=== PATIENT | female | born 1950 | race Two or more races ===

== ENCOUNTER 2016-12-06 23:02 | Inpatient (IN) | payer MEDICARE ==
[~2016-12-06] VITALS: Ht 162.6 cm; Wt 84.8 kg
[2016-12-07] MEDS ORDERED: Morphine Sulfate 4mg/ml Inj IVP ONE (01:00)
[2016-12-07 01:09] LABS: BASOPHILS % (AUTO) 0.8 % (0.0-2.0); EOSINOPHILS % (AUTO) 1.8 % (0.0-3.0); LYMPHOCYTES % (AUTO) 30.9 % (20.0-45.0); MEAN CORPUSCULAR HEMOGLOBIN 31.1 PG (27.0-31.0); MEAN CORPUSCULAR HGB CONC 33.3 G/DL (32.0-36.0); MEAN CORPUSCULAR VOLUME 93 FL (80-99); MONOCYTES % (AUTO) 5.6 % (1.0-10.0); NEUTROPHILS % (AUTO) 60.9 % (45.0-75.0); PLATELET COUNT 137 K/UL (150-450); RED CELL DISTRIBUTION WIDTH 11.9 % (11.6-14.8); WHITE BLOOD COUNT 5.5 K/UL (4.8-10.8)
[2016-12-07 01:27] LABS: ALANINE AMINOTRANSFERASE 27 U/L (3-33); ALBUMIN/GLOBULIN RATIO 1.6 (1.0-2.7); ANION GAP 12 (5-15); ASPARTATE AMINO TRANSFERASE 21 U/L (5-40); CARBON DIOXIDE 29 mEQ/L (20-30); CHLORIDE 100 mEQ/L (98-107); CREATININE 0.7 mg/dL (0.5-0.9); GLOMERULAR FILTRATION RATE > 60 mL/min (>60); HEMOLYSIS 4; LIPASE 62 U/L (< 60); POTASSIUM 4.4 mEQ/L (3.4-4.9); SODIUM 141 mEQ/L (135-145); TOTAL PROTEIN 7.5 g/dL (6.6-8.7)
[2016-12-07 01:54] LABS: TROPONIN I < 0.30 ng/mL (<=0.30)
[2016-12-07 02:04] LABS: CKMB 2.5 ng/mL (< 3.8)
[2016-12-07] MEDS ORDERED: Diazepam 10mg/2ml Inj IV ONE (02:45)
[2016-12-07 03:21] VITALS: BP 135/78
[2016-12-07 03:58] LABS: APPEARANCE,URINE CLEAR; KETONES,URINE NEGATIVE (NEGATIVE); LEUKOCYTE ESTERASE ,URINE 1+ (NEGATIVE); NITRITE,URINE NEGATIVE (NEGATIVE); PH,URINE 7 (4.5-8.0); PROTEIN,URINE NEGATIVE (NEGATIVE); UROBILINOGEN,URINE NORMAL MG/DL (0.0-1.0)
[2016-12-07 04:08] LABS: RBC,URINE 0-2 /HPF (0 - 2); SQUAMOUS EPITHELIAL CELL,UR FEW /LPF (NONE/OCC); WBC,URINE 0-2 /HPF (0 - 2)
[2016-12-07] MEDS ORDERED: MECLIZINE HCL25 MG ORAL (04:54)
[2016-12-07] MEDS ORDERED: ZOFRAN ODT4 MG ORAL (04:54)
--- NOTE | 2016-12-07 06:15 | Emergency Room Report ---
History of Present Illness General Chief Complaint: Headache Source: Patient Present Illness HPI 66-year-old female presents to ED complaining of headache with nausea and vomiting. Patient brought in by EMS. Patient states symptoms started just prior to arrival. Patient describes headache, 6/10, throbbing, across the forehead. Denies any blurry vision. Notes nausea and vomiting. States she feels dizziness with room spinning sensation. Worse with sudden movements. Denies neck stiffness. Denies any fevers or chills. Denies chest pain shortness of breath. No other aggravating relieving factors. Denies any other associated symptoms Allergies: Coded Allergies: CODEINE (Unverified Allergy, Unknown, 12/06/16) SULFA (SULFONAMIDE ANTIBIOTICS) (Unverified Allergy, Unknown, 12/06/16) Uncoded Allergies: SULFA (Allergy, Unknown, 12/06/16) Patient History Past Medical History: HTN Past Surgical History: none Pertinent Family History: none Social History: Denies: alcohol use, drug use, smoking Last Menstrual Period: NONE Now: No Immunizations: UTD Reviewed Nursing Documentation: PMH: Agreed, PSxH: Agreed Nursing Documentation-PMH Hx Hypertension: Yes Review of Systems All Other Systems: negative except mentioned in HPI Physical Exam Vital Signs Date Time Temp Pulse Resp B/P Pulse Ox O2 Delivery O2 Flow Rate FiO2 12/06/16 22:57 97.9 67 18 147/85 97 Room Air Sp02 EP Interpretation: reviewed, normal General Appearance: alert, GCS 15, non-toxic, mild distress Head: normocephalic, atraumatic Eyes: bilateral eye PERRL, bilateral eye normal inspection ENT: hearing grossly normal, normal pharynx, no angioedema, normal voice Neck: full range of motion, supple/symm/no masses Respiratory: chest non-tender, lungs clear, normal breath sounds, speaking full sentences Cardiovascular #1: regular rate, rhythm, no edema Cardiovascular #2: 2+ carotid (R), 2+ carotid (L), 2+ radial (R), 2+ radial (L) , 2+ dorsalis pedis (R), 2+ dorsalis pedis (L) Gastrointestinal: normal bowel sounds, non tender, soft, non-distended, no guarding, no rebound Rectal: deferred Genitourinary: normal inspection, no CVA tenderness Musculoskeletal: back normal, gait/station normal, normal range of motion, non- tender Neurologic: alert, oriented x3, responsive, motor strength/tone normal, sensory intact, speech normal Psychiatric: judgement/insight normal, memory normal, mood/affect normal, no suicidal/homicidal ideation Reflexes: 3+ bicep (R), 3+ bicep (L), 3+ tricep (R), 3+ tricep (L), 3+ knee (R) , 3+ knee (L) Skin: normal color, no rash, warm/dry, well hydrated Lymphatic: no adenopathy Medical Decision Making Diagnostic Impression: Primary Impression: Vertigo Additional Impressions: Headache Qualified Codes: R51 - Headache Unsteady gait ER Course Hospital Course 66-year-old female presents ED complaining of headache with dizziness and vomiting Differential diagnoses include: GA/unstable angina, arrythmia, dehydration, CVA/ TIA Clinical course Patient placed on stretcher. on steel rigger. After initial history and physical I ordered labs, EKG, IVFs, CT Brain labs reviewed- no leukocytosis, hemoglobin/hematocrit ok, electrolytes okay, troponins negative EKG- NSR, no acute changes interpreted by me CT brain-unremarkable Patient given pain medication, Zofran, valium for the dizziness. Given IV fluids. However patient remains dizzy and has unsteady gait. I believe patient should be admitted for further workup including MRI given aspirin. Case discussed with Dr. Begum and he agreed to accept the patient to his service for further care and support I. I feel this is a highly complex case requiring extensive working including EKG/Rhythm strip, Xray/CT/US, Blood/urine lab work, repeat exams while in ED, and administration of strong opiates/narcotics for pain control, admission to hospital or close patient follow up. Diagnosis - vertigo, headache, unsteady gait admitted to telemetry in serious condition Labs Test 12/06/16 23:45 12/07/16 03:15 White Blood Count 5.5 K/UL (4.8-10.8) Red Blood Count 5.10 M/UL (4.20-5.40) Hemoglobin 15.9 G/DL (12.0-16.0) Hematocrit 47.7 % (37.0-47.0) Mean Corpuscular Volume 93 FL (80-99) Mean Corpuscular Hemoglobin 31.1 PG (27.0-31.0) Mean Corpuscular Hemoglobin Concent 33.3 G/DL (32.0-36.0) Red Cell Distribution Width 11.9 % (11.6-14.8) Platelet Count 137 K/UL (150-450) Mean Platelet Volume 7.0 FL (6.5-10.1) Neutrophils (%) (Auto) 60.9 % (45.0-75.0) Lymphocytes (%) (Auto) 30.9 % (20.0-45.0) Monocytes (%) (Auto) 5.6 % (1.0-10.0) Eosinophils (%) (Auto) 1.8 % (0.0-3.0) Basophils (%) (Auto) 0.8 % (0.0-2.0) Sodium Level 141 mEQ/L (135-145) Potassium Level 4.4 mEQ/L (3.4-4.9) Chloride Level 100 mEQ/L (98-107) Carbon Dioxide Level 29 mEQ/L (20-30) Anion Gap 12 (5-15) Blood Urea Nitrogen 15 mg/dL (7-23) Creatinine 0.7 mg/dL (0.5-0.9) Estimat Glomerular Filtration Rate > 60 mL/min (>60) Glucose Level 124 mg/dL (74-106) Calcium Level 10.0 mg/dL (8.6-10.2) Total Bilirubin 0.4 mg/dL (0.0-1.2) Aspartate Amino Transf (AST/SGOT) 21 U/L (5-40) Alanine Aminotransferase (ALT/SGPT) 27 U/L (3-33) Alkaline Phosphatase 60 U/L (35-104) Creatine Kinase MB 2.5 ng/mL (< 3.8) Troponin I < 0.30 ng/mL (<=0.30) Total Protein 7.5 g/dL (6.6-8.7) Albumin 4.7 g/dL (3.5-5.2) Globulin 2.8 g/dL Albumin/Globulin Ratio 1.6 (1.0-2.7) Lipase 62 U/L (< 60) Urine Color Pale yellow Urine Appearance Clear Urine pH 7 (4.5-8.0) Urine Specific [place] 1.005 (1.005-1.035) Urine Protein Negative (NEGATIVE) Urine Glucose (UA) Negative (NEGATIVE) Urine Ketones Negative (NEGATIVE) Urine Occult Blood Negative (NEGATIVE) Urine Nitrite Negative (NEGATIVE) Urine Bilirubin Negative (NEGATIVE) Urine Urobilinogen Normal MG/DL (0.0-1.0) Urine Leukocyte Esterase 1+ (NEGATIVE) Urine RBC 0-2 /HPF (0 - 2) Urine WBC 0-2 /HPF (0 - 2) Urine Squamous Epithelial Cells Few /LPF (NONE/OCC) Urine Bacteria None /HPF (NONE) EKG Diagnostic Results Rate: normal Rhythm: NSR ST Segments: no acute changes ASA given to the pt in ED: Yes Rhythm Strip Diag. Results EP Interpretation: yes Rhythm: NSR, no PVC's, no ectopy CT/MRI/US Diagnostic Results CT/MRI/US Diagnostic Results : Imaging Test Ordered: CT Head Impression no acute process Last Vital Signs Date Time Temp Pulse Resp B/P Pulse Ox O2 Delivery O2 Flow Rate FiO2 12/07/16 03:21 97.9 72 18 135/78 94 Room Air Status: improved Disposition: HOME, SELF-CARE Condition: Stable Scripts Meclizine Hcl* (MECLIZINE*) 25 Mg Tablet 25 MG ORAL THREE TIMES A DAY, #15 TAB Prov: JAMIE PERKINS M.D. 12/07/16 Ondansetron Odt* (ZOFRAN ODT*) 4 Mg Tab.rapdis 4 MG ORAL Q6H Y for Nausea & Vomiting, #30 TAB 0 Refills Prov: JAMIE PERKINS M.D. 12/07/16 Patient Instructions: Vertigo, Sbif-nl-Hnhr JAMIE PERKINS M.D. Dec 07, 2016 06:15
[2016-12-07 06:33] VITALS: BP 122/61
[2016-12-07] MEDS ORDERED: Meclizine 25mg tab ORAL ONE (06:45)
--- NOTE | 2016-12-07 07:10 | Cardiology Progress Note ---
Assessment/Plan Assessment/Plan recurrent vertigo htn miigraines head ache admit neuro eval antiemetics [id number] Objective Last 24 Hour Vital Signs Date Time Temp Pulse Resp B/P Pulse Ox O2 Delivery O2 Flow Rate FiO2 12/07/16 06:33 98.0 67 18 122/61 96 Room Air 12/07/16 03:21 97.9 72 18 135/78 94 Room Air 12/07/16 01:20 98.0 12/06/16 22:57 97.9 67 18 147/85 97 Room Air Intake and Output 12/06/16 12/07/16 19:00 07:00 Intake Total 250 ml Output Total 500 ml Balance -250 ml Intake IV Total 250 ml Output Urine Total 500 ml Laboratory Tests Test 12/06/16 23:45 12/07/16 03:15 White Blood Count 5.5 K/UL (4.8-10.8) Red Blood Count 5.10 M/UL (4.20-5.40) Hemoglobin 15.9 G/DL (12.0-16.0) Hematocrit 47.7 % (37.0-47.0) H Mean Corpuscular Volume 93 FL (80-99) Mean Corpuscular Hemoglobin 31.1 PG (27.0-31.0) H Mean Corpuscular Hemoglobin Concent 33.3 G/DL (32.0-36.0) Red Cell Distribution Width 11.9 % (11.6-14.8) Platelet Count 137 K/UL (150-450) L Mean Platelet Volume 7.0 FL (6.5-10.1) Neutrophils (%) (Auto) 60.9 % (45.0-75.0) Lymphocytes (%) (Auto) 30.9 % (20.0-45.0) Monocytes (%) (Auto) 5.6 % (1.0-10.0) Eosinophils (%) (Auto) 1.8 % (0.0-3.0) Basophils (%) (Auto) 0.8 % (0.0-2.0) Sodium Level 141 mEQ/L (135-145) Potassium Level 4.4 mEQ/L (3.4-4.9) Chloride Level 100 mEQ/L (98-107) Carbon Dioxide Level 29 mEQ/L (20-30) Anion Gap 12 (5-15) Blood Urea Nitrogen 15 mg/dL (7-23) Creatinine 0.7 mg/dL (0.5-0.9) Estimat Glomerular Filtration Rate > 60 mL/min (>60) Glucose Level 124 mg/dL (74-106) H Calcium Level 10.0 mg/dL (8.6-10.2) Total Bilirubin 0.4 mg/dL (0.0-1.2) Aspartate Amino Transf (AST/SGOT) 21 U/L (5-40) Alanine Aminotransferase (ALT/SGPT) 27 U/L (3-33) Alkaline Phosphatase 60 U/L (35-104) Creatine Kinase MB 2.5 ng/mL (< 3.8) Troponin I < 0.30 ng/mL (<=0.30) Total Protein 7.5 g/dL (6.6-8.7) Albumin 4.7 g/dL (3.5-5.2) Globulin 2.8 g/dL Albumin/Globulin Ratio 1.6 (1.0-2.7) Lipase 62 U/L (< 60) H Urine Color Pale yellow Urine Appearance Clear Urine pH 7 (4.5-8.0) Urine Specific [place] 1.005 (1.005-1.035) Urine Protein Negative (NEGATIVE) Urine Glucose (UA) Negative (NEGATIVE) Urine Ketones Negative (NEGATIVE) Urine Occult Blood Negative (NEGATIVE) Urine Nitrite Negative (NEGATIVE) Urine Bilirubin Negative (NEGATIVE) Urine Urobilinogen Normal MG/DL (0.0-1.0) Urine Leukocyte Esterase 1+ (NEGATIVE) H Urine RBC 0-2 /HPF (0 - 2) Urine WBC 0-2 /HPF (0 - 2) Urine Squamous Epithelial Cells Few /LPF (NONE/OCC) Urine Bacteria None /HPF (NONE) SUSAN PAUL Dec 07, 2016 07:10
[2016-12-07] MEDS ORDERED: COZAAR50 MG ORAL (07:39)
[2016-12-07 08:00] VITALS: BP 167/84
[2016-12-07] MEDS ORDERED: Heparin 5000 units/ml inj SUBQ SCH (09:00)
--- NOTE | 2016-12-07 09:20 | Diagnostic Imaging Report ---
Indication: Headache Technique: Continuous helical CT scanning of the head was performed without intravenous contrast material. Axial and coronal 5 mm sections were generated. Radiation dose was minimized using automated exposure control Dose: Total Dose Length Product - DLP [address] Dose Index - CTDIvol(s) 70.38 mGy. Comparison: 05/05/2010 Findings: The ventricular system is normal in size and configuration. There is no shift of midline structures. No abnormal extra-axial fluid collections are noted. There is no evidence of intracerebral bleeding. No other abnormal high or low density areas are noted within the brain. No calvarial injury. There is calvarial hyperostosis. No significant interim change Impression: Normal CT scan of the head without contrast material. This agrees with the preliminary interpretation provided overnight by [facility] teleradiology service. The CT scanner at [facility] is accredited by the [employer] and the scans are performed using protocols designed to limit radiation exposure to as low as reasonably achievable to attain images of sufficient resolution adequate for diagnostic evaluation.
[2016-12-07] MEDS ORDERED: LORazepam Inj 2mg/ml 1ml IV PRN (11:30)
[2016-12-07] MEDS: Meclizine 25mg tab ORAL SCH ×2 (11:34→18:28)
[2016-12-07] MEDS: Losartan 50mg tab ORAL SCH (11:34)
--- NOTE | 2016-12-07 11:35 | Neurology Progress Note ---
Objective Physical Exam Last Vital Signs Date Time Temp Pulse Resp B/P Pulse Ox O2 Delivery O2 Flow Rate FiO2 12/07/16 08:00 97.2 79 19 167/84 96 Room Air Laboratory Tests Test 12/06/16 23:45 12/07/16 03:15 White Blood Count 5.5 K/UL (4.8-10.8) Red Blood Count 5.10 M/UL (4.20-5.40) Hemoglobin 15.9 G/DL (12.0-16.0) Hematocrit 47.7 % (37.0-47.0) H Mean Corpuscular Volume 93 FL (80-99) Mean Corpuscular Hemoglobin 31.1 PG (27.0-31.0) H Mean Corpuscular Hemoglobin Concent 33.3 G/DL (32.0-36.0) Red Cell Distribution Width 11.9 % (11.6-14.8) Platelet Count 137 K/UL (150-450) L Mean Platelet Volume 7.0 FL (6.5-10.1) Neutrophils (%) (Auto) 60.9 % (45.0-75.0) Lymphocytes (%) (Auto) 30.9 % (20.0-45.0) Monocytes (%) (Auto) 5.6 % (1.0-10.0) Eosinophils (%) (Auto) 1.8 % (0.0-3.0) Basophils (%) (Auto) 0.8 % (0.0-2.0) Sodium Level 141 mEQ/L (135-145) Potassium Level 4.4 mEQ/L (3.4-4.9) Chloride Level 100 mEQ/L (98-107) Carbon Dioxide Level 29 mEQ/L (20-30) Anion Gap 12 (5-15) Blood Urea Nitrogen 15 mg/dL (7-23) Creatinine 0.7 mg/dL (0.5-0.9) Estimat Glomerular Filtration Rate > 60 mL/min (>60) Glucose Level 124 mg/dL (74-106) H Calcium Level 10.0 mg/dL (8.6-10.2) Total Bilirubin 0.4 mg/dL (0.0-1.2) Aspartate Amino Transf (AST/SGOT) 21 U/L (5-40) Alanine Aminotransferase (ALT/SGPT) 27 U/L (3-33) Alkaline Phosphatase 60 U/L (35-104) Creatine Kinase MB 2.5 ng/mL (< 3.8) Troponin I < 0.30 ng/mL (<=0.30) Total Protein 7.5 g/dL (6.6-8.7) Albumin 4.7 g/dL (3.5-5.2) Globulin 2.8 g/dL Albumin/Globulin Ratio 1.6 (1.0-2.7) Lipase 62 U/L (< 60) H Urine Color Pale yellow Urine Appearance Clear Urine pH 7 (4.5-8.0) Urine Specific [place] 1.005 (1.005-1.035) Urine Protein Negative (NEGATIVE) Urine Glucose (UA) Negative (NEGATIVE) Urine Ketones Negative (NEGATIVE) Urine Occult Blood Negative (NEGATIVE) Urine Nitrite Negative (NEGATIVE) Urine Bilirubin Negative (NEGATIVE) Urine Urobilinogen Normal MG/DL (0.0-1.0) Urine Leukocyte Esterase 1+ (NEGATIVE) H Urine RBC 0-2 /HPF (0 - 2) Urine WBC 0-2 /HPF (0 - 2) Urine Squamous Epithelial Cells Few /LPF (NONE/OCC) Urine Bacteria None /HPF (NONE) Impression/Recommendations Problems: (1) Benign paroxysmal positional vertigo of right ear (2) HTN (hypertension) Status: unchanged Recommendations # [id number] ERIC DOLL Dec 07, 2016 11:35
--- NOTE | 2016-12-07 13:30 | History and Physical Report ---
DATE OF ADMISSION: 12/07/2016 ADMISSION HISTORY AND PHYSICAL REASON FOR ADMISSION: Vertigo and dizziness. HISTORY OF PRESENT ILLNESS: This is a middle-aged 66-year-old female, who is known to me. The patient was last hospitalized at [facility] from 10/24/2016 to 10/25/2016 for transient neurological symptoms and vertigo, and was seen in consultation by Dr. Barroso and had evaluation including and was seen in GI consultation and was to follow up as an outpatient. She presented to the hospital emergency room at [facility] by paramedics after developing recurrent symptoms of spinning sensation she describes in the emergency room she did receive some therapies, has had a CT scan, which was negative. Her symptoms are persistent and she is not able to ambulate, therefore she is being admitted. She really does not have any other neurological symptoms at this time. There is no weakness or paralysis on one side or the other. No change in vision. She is nauseated and spinning sensation every time she sits up or stands up. She did receive some intravenous fluid already in the emergency room. The patient have some posterior pain in her head as well as in her neck, and last diagnosed should be headache with a history of migraines. PAST MEDICAL HISTORY: Positive for the doubt of the transient neurological symptoms in September of 2016, vertigo, chest pain, hypertension, reactive component, history of diverticulitis, hyperglycemia, hyperlipidemia, migraines, dysphagia, and she has had bronchospasm due to chemicals and history of anemia as a young lady. PAST SURGICAL HISTORY: She has had hysterectomy and bladder sling surgery. MEDICATIONS: Previously included losartan. ALLERGIES: To codeine and sulfa. SOCIAL HISTORY: She does not smoke or drink alcoholic beverages. She works and she takes care of her daughter as well. FAMILY HISTORY: Father with Parkinson's. Mother with migraines. REVIEW OF SYSTEMS: Gastrointestinal: Positive for nausea and vomiting. No diarrhea. No constipation. No bloody stools or black tarry stools. Genitourinary System: She denies. Pulmonary System: She denies. Constitutional System: She denies. Neurologic System: As mentioned in the history of present illness. PHYSICAL EXAMINATION: GENERAL: Shows a middle-aged female, in no respiratory distress, on sitting up she feels worse. LUNG: Clear to auscultation and percussion. CARDIAC EXAMINATION: S1 is normal. S2 is normal. Regular rate and rhythm. No heaves or thrills noted. ABDOMEN: Soft and obese. Positive bowel sounds. Nontender. EXTREMITIES: There is no edema. NEUROLOGIC: Cranial nerves seem to be intact. She is moving all four extremities. She has relatively good strength. I do not appreciate any nystagmus. She is unable to stand up for repeat evaluation at this time. LABORATORY AND DIAGNOSTIC DATA: Her laboratory values here in the emergency room with a white count of 5.5, hemoglobin 15.9, and platelet count of 137,000. Sodium is 141, potassium 4.4, chloride 100, bicarbonate 29, BUN of 15, creatinine 0.7, glucose of 124, and calcium is 10. Lipase of 62. Troponin less than 0.03. Albumin of 4.7. Her urinalysis is fairly unremarkable. Her EKG was normal sinus rhythm. Her CT scan reportedly showed some abnormalities. ASSESSMENT AND PLAN: 1. Vertigo recurrent. 2. History of hypertension. 3. History of chest pains. 4. Vitamin B12 insufficiency. This patient will be admitted to the hospital. She has a persistent neurological symptoms with blood pressure. Her vital signs seem to be intact. Blood pressure most recently 122/61, heart rate is 67, temperature 98.0 degrees. She has had a evaluation including a MRI before. I will ask the neurologist to see the patient in consultation again at this time. In the meantime, the patient will be treated with a course of meclizine. She has received some Valium in the emergency room and receiving antibiotics, and I will follow her here. If she does improve, she insists on going home. We will discharge her as she . Nahum Begum M.D. DR: Sandee JOB#: [id number] CC:
--- NOTE | 2016-12-07 14:45 | Diagnostic Imaging Report ---
Indication: Dizziness and vertigo Technique: Pre-and postcontrast axial and coronal thin slice axial and coronal T2 fast spin-echo images obtained of the internal auditory canals and surrounding areas. T1 fast spin-echo, Comparison: None Findings: Internal auditory canals appear normal in size and configuration. The bilateral inner ear structures appear unremarkable. No cerebellopontine angle mass or other lesion demonstrated. Vascular flow voids are preserved. Dominant left vertebral artery is noted. Impression: Negative
--- NOTE | 2016-12-07 14:50 | Diagnostic Imaging Report ---
Indication: Dizziness and vertigo Technique: sagittal T1 fast spin echo, axial T1 and T2 FLAIR PROPELLER, axial T2 FS PROPELLER, T2* GRE, axial diffusion weighted images, post contrast axial and coronal T1 FLAIR PROPELLER images. ADC and exponential ADC maps generated Comparison: Reference made to CT brain 12/06/2016 Findings: . No abnormal areas of restricted diffusion to suggest acute infarction. No acute hemorrhage or edema questionable small focus of susceptibility artifact is seen in the left midbrain posteriorly.. No mass effect nor midline shift. No abnormal contrast enhancement. Normal size ventricles and extra axial CSF spaces, for age. Visualized orbits and sinuses are unremarkable. There is calvarial hyperostosis. There are small periventricular T2 hyperintensities. Impression: Negative for acute intracranial bleed, mass effect, infarct, or contrast enhancing lesion Minimal periventricular white matter T2 hyperintensities, nonspecific, and raises the chronic ischemic changes.
[2016-12-07 16:00] VITALS: BP 134/70
--- NOTE | 2016-12-07 19:45 | Consultation ---
DATE OF CONSULTATION: 12/07/2016 NEUROLOGICAL CONSULTATION CONSULTING PHYSICIAN: Fred Martinez M.D. REQUESTING PHYSICIAN: Nahum Begum M.D. HISTORY OF PRESENT ILLNESS: The patient is a 66-year-old female, seen in neurological consultation to evaluate acute onset of positional vertigo. According to the patient, couple of days ago, she had seen a dentist, she had some dental work on her teeth, and this was tolerated well except slight discomfort in her left ear. Yesterday, she at around 4 p.m. while sitting at the table having meals, she had an acute onset of vertigo accompanied by nausea and vomiting. She developed severe occipital pain. She was brought to emergency room. She was complaining of frontal headache and spinning sensation worsened to any movement. The patient described that discomfort subsides when she is lying still on her left side. Her vital signs included blood pressure 147/85 and temperature 97.[address] of the brain was negative. EKG normal sinus rhythm. Laboratory work was obtained with a normal CBC study. Chemistry panel, blood sugar 124, lipase 62 otherwise normal study, and urinalysis was unremarkable. Following admission, she was given Valium, Zofran, felt some improvement, but still remained with acute onset of dizziness and vertigo with nausea and vomiting with any attempt to move especially when sit up or turning to the right. According to the patient and her family who were present during this examination, she had a similar episode months ago. At that point, her blood pressure went up to 209 systolic, but was less severe accompanied by nausea and vomiting. She was admitted to [facility], seen by a neurologist, Dr. Menezes, MRI of the brain was obtained, and reported as negative. She had symptoms resolved within the first couple of days. She was discharged to home. Given p.r.n. meclizine. The patient also recalled similar episode of a severe positional vertigo a year ago, this also resolved within the first couple of days. There were no ENT assessment. PAST MEDICAL HISTORY: History of hypertension and history of colon infection, required antibiotic course. MEDICATIONS: The treatment included Cozaar and p.r.n. Zofran and meclizine. ALLERGIES: Aspirin, codeine, and sulfa drugs. FAMILY HISTORY: Noncontributory. SOCIAL HISTORY: She has a positive big family and socially very active. No alcohol. No drug abuse. Nonsmoker. REVIEW OF SYSTEMD: The patient denies hearing problems. No vision abnormalities, although recall on admission there was slight blurriness of vision. There is no unilateral weakness, numbness, or tingling. She admits having acute vertigo with head movement to the right side for upright. No urine or bowel incontinence. No swallowing issues. She has abdominal discomfort which is chronic. PHYSICAL EXAMINATION: GENERAL: A well-developed and well-nourished female, lying on her left side with eyes closed, somewhat pale. VITAL SIGNS: Now stable. Blood pressure 167/84 and temperature 97.2 degrees. HEENT: Head normocephalic. There is no evidence of trauma. No pain. Discomfort in TMJ and retroauricular region. No otorrhea. No rhinorrhea. No palpable tenderness noted in the upper back, neck, head, or temples. MUSCULOSKELETAL: Peripheral pulses 1+ symmetric. MENTAL STATUS: The patient is alert and oriented x3 with no evidence of aphasia or apraxia. Cognitive function normal. She speaks slowly, quiet, afraid of getting vertigo exacerbation. CRANIAL NERVE II: Pupils both responding to light and accommodation. Extraocular movement, full range. As she tried to move her head, she developed acute horizontal nystagmus and felt nauseous. Visual romeo are full to confrontation. Fundi unable to test due to poor tolerance of light. CRANIAL NERVE V: Normal corneal responses. CRANIAL NERVE VII: No facial asymmetry. CRANIAL NERVE VIII: Normal hearing. The patient remained without vertigo while lying on her left side with eyes closed, but any attempt to open eyes with movement of head to the right causes exacerbation of vertigo accompanied by nausea and vomiting. CRANIAL NERVE IX THROUGH XII: Tongue is in midline. Symmetric palate elevation. MOTOR EXAMINATION: Normal muscle tone. Strength 5/5 in all extremities. No involuntary movement. Deep tendon reflexes 1+ symmetric with downgoing toes on both sides. SENSORY EXAM: Normal to pinprick and light touch. Gait not tested. IMPRESSION: 1. Rule out acoustic neuroma. 2. Hypertension, labile. RECOMMENDATION: 1. MRI of the brain as well as internal auditory canal with and without contrast. 2. Meclizine 25 mg t.i.d. 3. Ativan 1 mg q.4 hours for acute vertigo. 4. Zofran. 5. Plavix 75 mg daily. 6. If symptoms persist, we will have a trial of steroids. Thank you for allowing me to see this interesting patient in neurological consultation. Fred Taye Martinez DR: MOISES JOB#: [id number] CC:
[2016-12-07 20:00] VITALS: BP 141/81
[2016-12-08] VITALS: BP 136/79
[2016-12-08] MEDS: Meclizine 25mg tab ORAL SCH ×2 (00:17→05:39)
[2016-12-08 04:00] VITALS: BP 132/70
[2016-12-08 08:00] VITALS: BP 141/80
[2016-12-08] MEDS: Losartan 50mg tab ORAL SCH (08:24)
--- NOTE | 2016-12-08 09:15 | Cardiology Progress Note ---
Assessment/Plan Assessment/Plan recurrent vertigo htn migraines head ache posterior somnolence likely related to med ativan dcd will hold meclizien since she is very drowsy mri brain neg mri iac neg neuro input appreciated Subjective Cardiovascular: Denies: chest pain, lightheadedness Respiratory: Denies: cough Gastrointestinal/Abdominal: Denies: abdomen distended Genitourinary: Denies: no symptoms Subjective dizziness improved bu has been drwoswy all yest and to day Objective Last 24 Hour Vital Signs Date Time Temp Pulse Resp B/P Pulse Ox O2 Delivery O2 Flow Rate FiO2 12/08/16 08:24 141/80 12/08/16 08:00 97.4 19 19 141/80 97 Room Air 12/08/16 04:00 63 12/08/16 04:00 98.4 64 19 132/70 100 Room Air 12/08/16 00:00 98.6 70 18 136/79 94 Room Air 12/08/16 00:00 66 12/07/16 20:00 99.0 64 20 141/81 93 Room Air 12/07/16 20:00 66 12/07/16 16:00 97.9 63 21 134/70 98 Room Air 12/07/16 16:00 64 12/07/16 11:34 167/84 General Appearance: no apparent distress, alert Neck: supple Cardiovascular: normal rate, regular rhythm Respiratory/Chest: lungs clear, normal breath sounds Abdomen: normal bowel sounds, non tender, soft Extremities: non-tender, no swelling Intake and Output 12/07/16 12/08/16 19:00 07:00 Intake Total 200 ml 1500 ml Balance 200 ml 1500 ml Intake Oral 200 ml IV Total 1500 ml # Voids 1 2 Laboratory Tests Test 12/07/16 16:30 12/08/16 08:25 Erythrocyte Sedimentation Rate 2 MM/HR (0-30) Triglycerides Level 101 mg/dL (< 150) Cholesterol Level 201 mg/dL (< 200) H LDL Cholesterol 131 mg/dL (60-99) H HDL Cholesterol 50 mg/dL (> 60) Cholesterol/HDL Ratio 4.0 (3.3-4.4) Sodium Level Pending Potassium Level Pending Chloride Level Pending Carbon Dioxide Level Pending Blood Urea Nitrogen Pending Creatinine Pending Estimat Glomerular Filtration Rate Pending Glucose Level Pending Calcium Level Pending Pro-B-Type Natriuretic Peptide Pending DANSAWYERRAD,SUSAN Dec 08, 2016 09:15
[2016-12-08 09:18] LABS: CALCIUM 8.8 mg/dL (8.6-10.2); GLOMERULAR FILTRATION RATE 55.3 mL/min (>60)
[2016-12-08] MEDS ORDERED: Meclizine 25mg tab ORAL PRN (09:45)
[2016-12-08 12:00] VITALS: BP 140/77
--- NOTE | 2016-12-08 13:29 | Neurology Progress Note ---
Interim History Interim History ROS Limited/Unobtainable: No Complaints: mild dizziness Events: improved Objective Physical Exam Last Vital Signs Date Time Temp Pulse Resp B/P Pulse Ox O2 Delivery O2 Flow Rate FiO2 12/08/16 12:00 97.5 70 20 140/77 95 Room Air 70 Laboratory Tests Test 12/07/16 16:30 12/08/16 08:25 Erythrocyte Sedimentation Rate 2 MM/HR (0-30) Triglycerides Level 101 mg/dL (< 150) Cholesterol Level 201 mg/dL (< 200) H LDL Cholesterol 131 mg/dL (60-99) H HDL Cholesterol 50 mg/dL (> 60) Cholesterol/HDL Ratio 4.0 (3.3-4.4) Sodium Level 144 mEQ/L (135-145) Potassium Level 4.0 mEQ/L (3.4-4.9) Chloride Level 107 mEQ/L (98-107) Carbon Dioxide Level 29 mEQ/L (20-30) Anion Gap 8 (5-15) Blood Urea Nitrogen 13 mg/dL (7-23) Creatinine 1.0 mg/dL (0.5-0.9) H Estimat Glomerular Filtration Rate 55.3 mL/min (>60) Glucose Level 118 mg/dL (74-106) H Calcium Level 8.8 mg/dL (8.6-10.2) Pro-B-Type Natriuretic Peptide 108 pg/mL (0-125) Neurologic Exam Mental Status: awake, alert, oriented x4, normal cognition, good mathematical skills, normal recent memory, normal remote memory, preserved visuospatial function Speech: normal speech, no dysarthia Language: normal language, no aphasia Cranial Nerve II: fundus normal, visual romeo, no papilledema Cranial Nerves III, IV, : PERRLA, EOMI, pupils Cranial Nerve V: normal facial sensations, temporales function normal, masseters function normal, pterygoids function normal Cranial Nerve VII: no facial asymmetry, normal facial expressions Cranial Nerve VIII: normal hearing, no nystagmus, other - no vertigo slight dizzy Cranial Nerve IX: normal palate elevation, gag response Cranial Nerve X: no voice hoarseness Cranial Nerve XI: SCM symmetric, trapezii function normal Cranial Nerve XII: tongue midline, no tongue atrophy/fasciculations Motor System: normal muscle tone, strength 5/5, no involuntary movement, no muscle wasting Sensory: normal pinprick, normal light touch, normal position sense, normal graphesthesia Coordination: normal finger to nose bilaterally, normal heel to silveira bilaterally, negative Romberg test Deep Tendon Reflexes: 2+ ankle (L), 2+ ankle (R), 2+ bicep (L), 2+ bicep (R), 2 + brachioradialis (L), 2+ brachioradialis (R), 2+ knee (L), 2+ knee (R), 2+ tricep (L), 2+ tricep (R) Reflexes: flexor plantar (L), flexor plantar (R) Stance: normal, other Gait: stable, normal regular, heel + toe gait, other - slow Impression/Recommendations Problems: (1) Benign paroxysmal positional vertigo of right ear (2) HTN (hypertension) Status: stable, unchanged Recommendations # [id number] improved ok [email or web address] ERIC DOLL Dec 08, 2016 13:29
--- NOTE | 2016-12-11 07:56 | Discharge Summary ---
Discharge Summary Hospital Course Date of Admission Dec 07, 2016 at 05:39 Date of Discharge Dec 08, 2016 at 16:00 Admitting Diagnosis dizziness, unsteady gait HPI Homero Ashby is a 66 year old female who was admitted on Dec 07, 2016 at 05: 39 for Dizziness/Unsteady Gait Hospital Course dc summary #[id number] Discharge Medications Continued Medications: Losartan Potassium* (Cozaar*) 50 Mg Tablet 50 MG ORAL DAILY, TAB Meclizine Hcl* (Meclizine*) 25 Mg Tablet 25 MG ORAL THREE TIMES A DAY, #15 TAB Ondansetron Odt* (Zofran Odt*) 4 Mg Tab.rapdis 4 MG ORAL Q6H PRN for Nausea & Vomiting, #30 TAB 0 Refills Discharge Condition Upon Discharge: stable Discharge Disposition Patient was discharged to Home (01) Discharge Diagnoses: Discharge Instructions Discharge Instructions Special Instructions I have been assigned to complete a D/C Summary on this account. I was not involved in the patient management Amy Mcknight NP (Vanchtein) Dec 11, 2016 07:56
--- NOTE | 2016-12-11 17:31 | Cardiology Report ---
APPROVED REPORT EKG Measurement Heart [id number] Normal sinus rhythm Cannot rule out Anterior infarct, age undetermined Abnormal ECG
--- NOTE | 2016-12-12 01:00 | Discharge Summary 2 SIG ---
DATE OF ADMISSION: 12/07/2016 DATE OF DISCHARGE: 12/08/2016 REASON FOR ADMISSION: A 66-year-old female with a history of hypertension, presented to emergency department with complaints of headache with nausea and vomiting. The patient described headache as throbbing across the forehead and rated 6/10 on a scale of 1 to 10. She denied blurred vision. She stated that she felt dizziness with the room spinning sensation. Worse with sudden movements. She denied neck stiffness. Denied fever or chills. Denied chest pain or shortness of breath. Workup in the emergency room revealed stable laboratory work. Blood pressure - 147/85. Troponin - negative. EKG showed normal sinus rhythm , pulse oximetry was stable on the room air. CT of the head was negative for any acute intracranial pathology. In the ED the patient was given analgesia, Zofran, and Valium. The patient was started on the IV fluids. However, the patient remained dizzy and with unsteady gait. The patient was admitted for further management. ADMITTING DIAGNOSES: 1. Recurrent vertigo. 2. Hypertension. 3. Headache. 4. Unsteady gait. HOSPITAL STAY: The patient was admitted. The patient was started on the IV fluids. Neurology consult was requested. The patient was started on meclizine as needed. Antiemetic provided as needed. Blood pressure was managed with the ARB and was stable. Neurologist seen and evaluated the patient and ordered MRI of the brain as well as the MRI of the ear to rule out acoustic neuroma. Subsequently both of these tests were performed. MRI of the brain was negative for any acute intracranial pathology. MRI of the internal auditory canal right ear was negative. There was no evidence of mass or other lesion, preserved vascular flow. With symptomatic treatment, the patient improved. Blood pressure was stable. Dizziness resolved. No nausea. No vomiting. Tolerated diet. The patient was able to walk. The patient insisted on going home. The patient was cleared for discharge by neurologist. Due to the rapid and unexpected improvement in the patient's condition, the patient was discharged in one day. DISCHARGE DIAGNOSES: 1. Benign positional vertigo . 2. Hypertension. 3. Migraine headache. DISCHARGE MEDICATIONS: See medication reconciliation list. DISCHARGE INSTRUCTIONS: The patient discharged home. Follow up with the primary medical doctor. Nahum Begum M.D. I have been assigned to dictate discharge summary on this account and I was not involved in the patient's management. Amy Leonsaad NLos DR: Salvador JOB#: [id number] CC: NATAN
== END 2016-12-08 16:00 | disposition home or self-care (01) | DRG 149 ==
LOC: EDBD 23:02 → EMR 23:29 → 2E 12-07 05:39 → EDBEDREQ 12-07 05:51 → 2E 12-07 09:05
DX: H81.10 Benign paroxysmal vertigo, unspecified ear (principal); I10 Essential (primary) hypertension; Z88.6 Allergy status to analgesic agent; Z88.2 Allergy status to sulfonamides; R40.0 Somnolence; G43.909 Migraine, unspecified, not intractable, without status migrainosus
CPT/HCPCS: 36415; 70450; 70543; 70553; 80048; 80053; 80061; 81003; 82553; 83690; 83880; 84484; 85025; 85651; 86039; 93005; A9585; J2405